=== PATIENT | female | born 1975 | race Caucasian/White ===

== ENCOUNTER → 2017-05-01 | Outpatient (CLI) | payer OTHER ==
[2017-05-01 17:54] LABS: Appearance,Urine Clear (Clear); Bilirubin,Urine Negative (Negative); Glucose,Urine (UA) Negative (Negative); Ketones,Urine Trace (Negative); Leukocyte Esterase,Urine Negative (Negative); Nitrite,Urine Negative (Negative); PH, Urine 6.5 (5.0-8.0); Protein,Urine Trace (Negative); Specific Gravity,Urine 1.025 (1.001-1.035); UA Billing (MACRO vs. MICRO) CHEM
== END | disposition home or self-care (01) ==
LOC: LABWHC1 17:27
PROVIDERS: ATTEND Obstetrics & Gynecology
DX: R31.9 Hematuria, unspecified (principal)
CPT/HCPCS: 81003; 87086

== ENCOUNTER 2017-07-31 16:26 | Emergency (ER) | payer OTHER ==
[2017-07-31 16:45] VITALS: RESP 16
[2017-07-31] MEDS ORDERED: KETOROLAC 30 MG/ML 1 ML VIAL IVP STA (17:26)
[2017-07-31] MEDS ORDERED: ONDANSETRON 4 MG/2 ML VIAL IVP STA (17:26)
[2017-07-31] MEDS ORDERED: SODIUM CHLORIDE 0.9% 1,000 ML IV ONE (17:26)
--- NOTE | 2017-07-31 17:28 | ED ---
Abdominal Pain HPI - General Chief Complaint: Abdominal Pain Stated Complaint: Pain in lower back and side Time Seen by Provider: 07/31/17 17:12 Source: patient, RN notes reviewed, old records reviewed Mode of arrival: ambulatory Limitations: no limitations - History of Present Illness Initial Comments: 41-year-old female presents emergency room today chief complaint of 4 hours of right-sided lower abdominal pain. Patient reports that she's noticed a dark color to her urine for the past few days. She denies any nausea or vomiting. She reports that she's had no fever or chills. The symptoms started just this evening that she's noticed some lower back pain over the past few days. She has history of degenerative disc disease and thinks that may be her back pain was just attributed to this. She denies any vaginal discharge. Surgical history includes hysterectomy, D&C. Patient reports that she has a history of ovarian cysts as well. She did take some Motrin prior to arrival with little relief from the pain. - Related Data Home Medications Medication Instructions Recorded Confirmed Ibuprofen [Motrin] 600 mg PO Q8HR PRN 06/11/16 07/31/17 ALPRAZolam [Xanax] 0.5 mg PO DAILY PRN 07/31/17 07/31/17 Ascorbic Acid [Vitamin C] 500 mg PO DAILY 07/31/17 07/31/17 Calcium Carbonate [Calcium] 600 mg PO DAILY 07/31/17 07/31/17 Folic Acid 0.4 mg PO DAILY 07/31/17 07/31/17 Previous Rx's Medication Instructions Recorded traMADol HCl [Ultram] 50 mg PO Q6H PRN #20 tab 07/31/17 Allergies Allergy/AdvReac Type Severity Reaction Status Date / Time No Known Allergies Allergy Verified 07/31/17 17:28 Review of Systems ROS Statement: Those systems with pertinent positive or pertinent negative responses have been documented in the HPI. ROS Other: All systems not noted in ROS Statement are negative. Past Medical History Additional Past Medical History / Comment(s): anemia,uterine fibroid History of Any Multi-Drug Resistant Organisms: None Reported Past Surgical History: Hysterectomy, Tubal Ligation Additional Past Surgical History / Comment(s): LEEP Procedure,D&C. Robotic hysterectomey 06/14/2016 Past Anesthesia/Blood Transfusion Reactions: No Reported Reaction Past Psychological History: No Psychological Hx Reported Smoking Status: Former smoker Past Alcohol Use History: None Reported Past Drug Use History: None Reported - Past Family History Mother Family Medical History: Liver Disease Father Family Medical History: Thyroid Disorder General Exam - General Exam Comments Initial Comments: This is a 41-year-old female. No acute distress. Limitations: no limitations General appearance: alert, in no apparent distress Head exam: Present: atraumatic, normocephalic, normal inspection Eye exam: Present: normal appearance, PERRL, EOMI. Absent: scleral icterus, conjunctival injection, periorbital swelling ENT exam: Present: normal exam, mucous membranes moist Neck exam: Present: normal inspection. Absent: tenderness, meningismus, lymphadenopathy Respiratory exam: Present: normal lung sounds bilaterally. Absent: respiratory distress, wheezes, rales, rhonchi, stridor Cardiovascular Exam: Present: regular rate, normal rhythm, normal heart sounds. Absent: systolic murmur, diastolic murmur, rubs, gallop, clicks GI/Abdominal exam: Present: soft, tenderness (Right lower quadrant tenderness.) , normal bowel sounds. Absent: distended, guarding, rebound, rigid Back exam: Present: normal inspection Neurological exam: Present: alert Psychiatric exam: Present: normal affect, normal mood Skin exam: Present: warm, dry, intact, normal color. Absent: rash Course Vital Signs 07/31/17 07/31/17 16:43 19:42 Temperature 98.8 F 97.3 F L Pulse Rate 68 58 L Respiratory 16 16 Rate Blood Pressure 105/56 89/57 O2 Sat by Pulse 99 100 Oximetry Medical Decision Making - Medical Decision Making 41-year-old female presents emergency room today chief complaint of 4 hours of right-sided lower abdominal pain. Patient reports that she's noticed a dark color to her urine for the past few days. She denies any nausea or vomiting. She reports that she's had no fever or chills. Patient does have some right lower quadrant tenderness. No rebound or guarding noted. Patient received IV fluids labwork obtained. Patient's lab work was all reviewed and within normal limits. Her urinalysis did show a few red blood cells. Concern for possible kidney stone. I did send the patient to get a CT abdomen and pelvis without contrast. This time there is no evidence of any obstructive stone no hydronephrosis. Patient does have some abnormalities around her pancreas, discussed that she has normal pancreatic enzymes are not concern for the CT finding. She does also have a 6 cm right-sided ovarian cyst. This could likely be patient's origin of pain as well. I discussed with the positive blood in her urine she may have actually passed a stone. She'll be discharged at this time with pain medication and close follow-up with primary care physician. Discussed return to emergency department if any alarming signs or symptoms occur. Urine culture obtained. - Lab Data Result diagrams: 07/31/17 17:33 07/31/17 17:33 Lab Results 07/31/17 07/31/17 07/31/17 Range/Units 17:33 17:33 17:33 WBC 6.1 (3.8-10.6) k/uL RBC 4.69 (3.80-5.40) m/uL Hgb 13.9 (11.4-16.0) gm/dL Hct 42.1 (34.0-46.0) % MCV 89.7 (80.0-100.0) fL MCH 29.7 (25.0-35.0) pg MCHC 33.1 (31.0-37.0) g/dL RDW 13.4 (11.5-15.5) % Plt Count 264 (150-450) k/uL Neutrophils % 57 % Lymphocytes % 28 % Monocytes % 6 % Eosinophils % 7 % Basophils % 1 % Neutrophils # 3.5 (1.3-7.7) k/uL Lymphocytes # 1.7 (1.0-4.8) k/uL Monocytes # 0.4 (0-1.0) k/uL Eosinophils # 0.4 (0-0.7) k/uL Basophils # 0.1 (0-0.2) k/uL Sodium 140 (137-145) mmol/L Potassium 3.8 (3.5-5.1) mmol/L Chloride 106 (98-107) mmol/L Carbon Dioxide 27 (22-30) mmol/L Anion Gap 7 mmol/L BUN 15 (7-17) mg/dL Creatinine 0.80 (0.52-1.04) mg/dL Est GFR (MDRD) Af Amer >60 (>60 ml/min/1.73 sqM) Est GFR (MDRD) Non-Af >60 (>60 ml/min/1.73 sqM) Glucose 86 (74-99) mg/dL Calcium 9.7 (8.4-10.2) mg/dL Total Bilirubin 0.5 (0.2-1.3) mg/dL AST 18 (14-36) U/L ALT 27 (9-52) U/L Alkaline Phosphatase 60 (38-126) U/L Total Protein 6.2 L (6.3-8.2) g/dL Albumin 3.5 (3.5-5.0) g/dL Amylase (30-110) U/L Lipase (23-300) U/L Urine Color Urine Appearance (Clear) Urine pH (5.0-8.0) Ur Specific [place] (1.001-1.035) Urine Protein (Negative) Urine Glucose (UA) (Negative) Urine Ketones (Negative) Urine Blood (Negative) Urine Nitrite (Negative) Urine Bilirubin (Negative) Urine Urobilinogen (<2.0) mg/dL Ur Leukocyte Esterase (Negative) Urine RBC (0-5) /hpf Urine WBC (0-5) /hpf Ur Squamous Epith Cells (0-4) /hpf Urine Bacteria (None) /hpf Urine Mucus (None) /hpf Urine HCG, Qual Not Detected (Not Detectd) 07/31/17 07/31/17 Range/Units 17:33 17:33 WBC (3.8-10.6) k/uL RBC (3.80-5.40) m/uL Hgb (11.4-16.0) gm/dL Hct (34.0-46.0) % MCV (80.0-100.0) fL MCH (25.0-35.0) pg MCHC (31.0-37.0) g/dL RDW (11.5-15.5) % Plt Count (150-450) k/uL Neutrophils % % Lymphocytes % % Monocytes % % Eosinophils % % Basophils % % Neutrophils # (1.3-7.7) k/uL Lymphocytes # (1.0-4.8) k/uL Monocytes # (0-1.0) k/uL Eosinophils # (0-0.7) k/uL Basophils # (0-0.2) k/uL Sodium (137-145) mmol/L Potassium (3.5-5.1) mmol/L Chloride (98-107) mmol/L Carbon Dioxide (22-30) mmol/L Anion Gap mmol/L BUN (7-17) mg/dL Creatinine (0.52-1.04) mg/dL Est GFR (MDRD) Af Amer (>60 ml/min/1.73 sqM) Est GFR (MDRD) Non-Af (>60 ml/min/1.73 sqM) Glucose (74-99) mg/dL Calcium (8.4-10.2) mg/dL Total Bilirubin (0.2-1.3) mg/dL AST (14-36) U/L ALT (9-52) U/L Alkaline Phosphatase (38-126) U/L Total Protein (6.3-8.2) g/dL Albumin (3.5-5.0) g/dL Amylase 79 (30-110) U/L Lipase 269 (23-300) U/L Urine Color Yellow Urine Appearance Clear (Clear) Urine pH 6.5 (5.0-8.0) Ur Specific [place] 1.020 (1.001-1.035) Urine Protein Negative (Negative) Urine Glucose (UA) Negative (Negative) Urine Ketones Negative (Negative) Urine Blood Trace H (Negative) Urine Nitrite Negative (Negative) Urine Bilirubin Negative (Negative) Urine Urobilinogen 2.0 (<2.0) mg/dL Ur Leukocyte Esterase Negative (Negative) Urine RBC 15 H (0-5) /hpf Urine WBC 3 (0-5) /hpf Ur Squamous Epith Cells 6 H (0-4) /hpf Urine Bacteria Moderate H (None) /hpf Urine Mucus Occasional H (None) /hpf Urine HCG, Qual (Not Detectd) - Radiology Data Radiology results: report reviewed CT head and pelvis shows a prominent pancreas that is probably within normal limits. Possible mild pancreatitis. Entirely excluded. No pancreatic mass noted. There is a large to low density pelvic mass probably an ovarian cyst. There is normal appendix. No evidence of renal stone or obstruction. Hysterectomy compared to old exam. Disposition Clinical Impression: Hematuria, RLQ abdominal pain Disposition: HOME SELF-CARE Condition: Good Instructions: Abdominal Pain (ED) Additional Instructions: Patient advised to follow-up with primary care provider within the next 1-2 days. Take prescription as directed. Return to emergency department if any alarming signs or symptoms occur. Prescriptions: traMADol HCl [Ultram] 50 mg PO Q6H PRN #20 tab PRN Reason: Pain Referrals: Sergio Kessler MD [Primary Care Provider] - 1-2 days Time of Disposition: 19:25
[2017-07-31] MEDS ORDERED: SODIUM CHLORIDE 0.9% 1,000 ML IV SCH (17:30)
[2017-07-31 17:45] LABS: Basophils # (A) 0.1 k/uL (0-0.2); Basophils % (A) 1 %; Eosinophils # (A) 0.4 k/uL (0-0.7); Eosinophils % (A) 7 %; HCT 42.1 % (34.0-46.0); HGB 13.9 gm/dL (11.4-16.0); Lymphocytes # (A) 1.7 k/uL (1.0-4.8); Lymphocytes % (A) 28 %; MCH 29.7 pg (25.0-35.0); MCHC 33.1 g/dL (31.0-37.0); MCV 89.7 fL (80.0-100.0); Monocytes # (A) 0.4 k/uL (0-1.0); Monocytes % (A) 6 %; Neutrophils # (A) 3.5 k/uL (1.3-7.7); Neutrophils % (A) 57 %; Platelet Count 264 k/uL (150-450); RBC 4.69 m/uL (3.80-5.40); RDW 13.4 % (11.5-15.5); WBC 6.1 k/uL (3.8-10.6)
[2017-07-31 17:57] LABS: ALT 27 U/L (9-52); AST 18 U/L (14-36); Albumin 3.5 g/dL (3.5-5.0); Alkaline Phosphatase 60 U/L (38-126); Anion Gap 7 mmol/L; Blood Urea Nitrogen 15 mg/dL (7-17); Calcium 9.7 mg/dL (8.4-10.2); Carbon Dioxide 27 mmol/L (22-30); Chloride 106 mmol/L (98-107); Glucose 86 mg/dL (74-99); Potassium 3.8 mmol/L (3.5-5.1); Sodium 140 mmol/L (137-145); Total Bilirubin 0.5 mg/dL (0.2-1.3); Total Protein 6.2 g/dL (6.3-8.2)
[2017-07-31 18:00] LABS: Appearance,Urine Clear (Clear); Bacteria,Urine Moderate /hpf; Bilirubin,Urine Negative (Negative); Blood,Urine Trace (Negative); Color,Urine Yellow; Glucose,Urine (UA) Negative (Negative); Ketones,Urine Negative (Negative); Leukocyte Esterase,Urine Negative (Negative); Mucus,Urine Occasional /hpf; Nitrite,Urine Negative (Negative); PH, Urine 6.5 (5.0-8.0); Protein,Urine Negative (Negative); RBC,Urine 15 /hpf (0-5); Squamous Epithelial Cell,Urine 6 /hpf (0-4); WBC,Urine 3 /hpf (0-5)
--- NOTE | 2017-07-31 18:43 | CT ---
EXAMINATION TYPE: CT abdomen pelvis wo con DATE OF EXAM: 07/31/2017 COMPARISON: 11/17/2015 HISTORY: Right sided pain with urination changes CT DLP: 241.4 mGycm Automated exposure control for dose reduction was used. TECHNIQUE: Helical acquisition of images was performed from the lung bases through the pelvis. FINDINGS: The lung bases are clear. There is no pleural effusion. Liver spleen appear normal. Pancreatic head i s somewhat prominent. There is probably some hypertrophy of the entire pancreas. I see no discrete ma ss. Bile ducts are not dilated. Gallbladder is contracted. There is no adrenal mass. Kidneys have normal size and contour. There is no hydronephrosis. Ureters a re not dilated. Appendix appears normal. I see no intestinal wall thickening. There are no dilated lo ops. Bladder distends smoothly. There is a low-density rounded 6 cm mass in the midline pelvis. Hyste rectomy is noted. I see no bony destructive process. IMPRESSION: THERE IS PROMINENT PANCREAS THAT IS PROBABLY WITHIN NORMAL LIMITS. THE POSSIBILITY OF MILD PANCREATIT IS CANNOT BE ENTIRELY EXCLUDED. NO DISCRETE PANCREATIC MASS SEEN. LARGE LOW DENSITY PELVIC MASS IS PROBABLY A OVARIAN CYST. NORMAL APPENDIX. NO EVIDENCE OF RENAL STONE OR OBSTRUCTION. THERE IS APPARENT HYSTERECTOMY COMPARED TO OLD EXAM. Pancreas is probably not significantly different than old exam.
[2017-07-31 19:05] LABS: Amylase 79 U/L (30-110); Lipase 269 U/L (23-300)
[2017-07-31] MEDS ORDERED: traMADol 50 MG STARTER PACK 3 TAB BTL PO STA (19:26)
[2017-07-31 19:44] VITALS: BP 89/57; PULSE 58; TEMP 97.3
== END 2017-07-31 19:48 | disposition home or self-care (01) ==
LOC: EC 16:26
DX: R31.9 Hematuria, unspecified (principal); R10.31 Right lower quadrant pain; Z98.51 Tubal ligation status; Z87.891 Personal history of nicotine dependence; Z79.899 Other long term (current) drug therapy
CPT/HCPCS: 36415; 80053; 82150; 83690; 85025; 81001; 81025; 87086; 74176; 99285; 96374; 96375; 96361 ×2; J2405; J1885

== ENCOUNTER → 2017-08-29 | Outpatient (CLI) | payer OTHER ==
--- NOTE | 2017-09-02 09:22 | MM ---
Reason for exam: screening (asymptomatic). Last mammogram was performed 1 year and 3 months ago. History: Family history of breast cancer in paternal grandmother. Physical Findings: A clinical breast exam by your physician is recommended on an annual basis and results should be correlated with mammographic findings. MG Screening Mammo w CAD Bilateral CC and MLO view(s) were taken. Prior study comparison: May 30, 2016, bilateral MG screening mammo w CAD. April 18, 2015, bilateral MG screening mammo w CAD. No significant changes when compared with prior studies. ASSESSMENT: Negative, BI-RAD 1 RECOMMENDATION: Routine screening mammogram of both breasts in 1 year.
== END | disposition home or self-care (01) ==
LOC: RADMAMWWP 08:56
PROVIDERS: ATTEND Obstetrics & Gynecology
DX: Z12.31 Encounter for screening mammogram for malignant neoplasm of breast (principal)
CPT/HCPCS: 77067

== ENCOUNTER → 2017-10-31 | Outpatient (CLI) | payer OTHER ==
--- NOTE | 2017-10-31 11:39 | US ---
EXAMINATION TYPE: US transvaginal DATE OF EXAM: 10/31/2017 COMPARISON: CT abdomen and pelvis July 31, 2017. Prior pelvic ultrasound October 04, 2015 CLINICAL HISTORY: N83.20 Previous right ovarian cyst. Intermittent pelvic and back pain x couple oni hs, history of ovarian cysts, hysterectomy 2016 and tubal ligation, 4, para 3 TECHNIQUE: Transvaginal exam only per ordering physician Date of LMP: 2015 EXAM MEASUREMENTS: Uterus: surgically absent Endometrial Stripe: surgically absent Right Ovary: 2.2 x 1.2 x 1.8 cm Left Ovary: not seen 1. Uterus: surgically absent 2. Endometrium: surgically absent 3. Right Ovary: wnl 4. Left Ovary: not seen due to overlying bowel 5. Bilateral Adnexa: wnl 6. Posterior cul-de-sac: wnl Uterus is now surgically absent. Normal-appearing right ovary is seen. Normal-appearing left ovary is not clearly identified. Previous ly visualized large pelvic cystic lesion on CT is not clearly seen on ultrasound. IMPRESSION: As above. I would consider repeat CT or MRI or transabdominal pelvic ultrasound to defini tively document resolution of large pelvic low dense or cystic lesion as due to central pelvic locati on it may be missed on transvaginal investigation.
== END | disposition home or self-care (01) ==
LOC: RADUSWWP 10:01
PROVIDERS: ATTEND Obstetrics & Gynecology
DX: Z09 Encounter for follow-up examination after completed treatment for conditions other than malignant neoplasm (principal); Z90.710 Acquired absence of both cervix and uterus; Z87.42 Personal history of other diseases of the female genital tract
CPT/HCPCS: 36415; 76830; 82670; 83001

== ENCOUNTER → 2020-07-17 | Outpatient (CLI) | payer OTHER ==
--- NOTE | 2020-07-19 14:41 | MM ---
Reason for exam: screening (asymptomatic). Last mammogram was performed 2 years and 11 months ago. History: Patient is postmenopausal. Family history of breast cancer in paternal grandmother. Took hormonal contraceptives for 6 months. Physical Findings: A clinical breast exam by your physician is recommended on an annual basis and results should be correlated with mammographic findings. MG Screening Mammo w CAD Bilateral CC and MLO view(s) were taken. Prior study comparison: August 29, 2017, bilateral MG screening mammo w CAD. June 04, 2016, left breast MG work up mamm w CAD LT. The breast tissue is heterogeneously dense. This may lower the sensitivity of mammography. No significant changes when compared with prior studies. ASSESSMENT: Negative, BI-RAD 1 RECOMMENDATION: Routine screening mammogram of both breasts in 1 year. Patient should continue monthly self breast exams. A negative report should not preclude additional follow up of suspicious palpable abnormalities.
== END | disposition home or self-care (01) ==
LOC: RADMAMWWP 07:56
PROVIDERS: ATTEND Obstetrics & Gynecology
DX: Z12.31 Encounter for screening mammogram for malignant neoplasm of breast (principal)
CPT/HCPCS: 77067

== ENCOUNTER → 2022-08-12 | Outpatient (CLI) | payer OTHER ==
--- NOTE | 2022-08-13 08:25 | MM ---
Reason for Exam: Screening (asymptomatic). Last mammogram was performed 2 year(s) and 0 month(s) ago. Patient History: Menarche at age 11. First Full-Term at age 19. Hysterectomy at age 41. Postmenopausal. Hormonal Contraceptives for 6 months. Paternal grandmother had breast cancer. Risk Values: Francine 5 year model risk: 0.8%. NCI Lifetime model risk: 8.4%. Prior Study Comparison: 06/04/2016 Left Diagnostic Mammogram, [facility]. 08/29/2017 Bilateral Screening Mammogram, [facility]. 07/17/2020 Bilateral Screening Mammogram, [facility]. Tissue Density: The breast tissue is heterogeneously dense. This may lower the sensitivity of mammography. Findings: Analyzed By CAD. There is no suspicious group of microcalcifications or new suspicious mass in either breast. Overall Assessment: Negative, BI-RAD 1 Management: Screening Mammogram of both breasts in 1 year. A clinical breast exam by your physician is recommended on an annual basis and results should be correlated with mammographic findings. [facility] will attempt to contact patient to return for supplemental views and ultrasound if indicated. Electronically signed and approved by: Schuyler Welsh DO
== END | disposition home or self-care (01) ==
LOC: RADMAMWWP 15:58
PROVIDERS: ATTEND Obstetrics & Gynecology
DX: Z12.31 Encounter for screening mammogram for malignant neoplasm of breast (principal); Z78.0 Asymptomatic menopausal state; Z80.3 Family history of malignant neoplasm of breast
CPT/HCPCS: 77067

== ENCOUNTER → 2022-10-22 | Outpatient (CLI) | payer OTHER ==
--- NOTE | 2022-10-22 12:15 | XR ---
EXAM TYPE: LUMBAR SPINE X RAY SERIES COMPARISON: NONE HISTORY: Pain TECHNIQUE: 3 views are submitted. FINDINGS: Alignment is anatomic. The pedicles are intact. The transverse processes are intact. There is no s pondylolisthesis. Facet arthropathy L4-5 and L5-S1. IMPRESSION: 1. Facet arthropathy L4-5 and L5-S1 likely resulting in foraminal encroachment and L5-S1 consider fol low-up MRI.
--- NOTE | 2022-10-22 12:16 | XR ---
EXAMINATION TYPE: XR cervical spine comp DATE OF EXAM: 10/22/2022 COMPARISON: NONE HISTORY: Pain TECHNIQUE: Four views are submitted. FINDINGS: The odontoid is intact. There are no compression deformities. The prevertebral soft tissue structur es are within normal limits. Loss of normal cervical lordosis with degenerative disc disease C4-5 an d C5-C6. IMPRESSION: 1. Loss of the normal cervical lordosis with moderate degenerative disease C4-5 C5-C6. Recommend MRI. .
== END | disposition home or self-care (01) ==
LOC: RADXRMAIN 11:48
PROVIDERS: ATTEND Chiropractor
DX: M50.322 Other cervical disc degeneration at C5-C6 level (principal); M47.812 Spondylosis without myelopathy or radiculopathy, cervical region; M47.817 Spondylosis without myelopathy or radiculopathy, lumbosacral region
CPT/HCPCS: 72050; 72100

== ENCOUNTER 2022-12-18 15:26 | Emergency (ER) | payer OTHER ==
[2022-12-18] MEDS ORDERED: ORPHENADRINE 30 MG/ML 2 ML VIAL IM STA (16:33)
[2022-12-18] MEDS ORDERED: KETOROLAC 15 MG/ML 1 ML VIAL IM STA (16:33)
--- NOTE | 2022-12-18 16:37 | ED ---
Back Pain HPI - General Chief Complaint: Back Pain/Injury Stated Complaint: Back Pain Time Seen by Provider: 12/18/22 16:25 Source: patient, RN notes reviewed, old records reviewed Limitations: no limitations - History of Present Illness Initial Comments: Well-appearing 47-year-old female presents to the emergency room with left lower back muscle "spasms" since 0800 this morning after she tried to twist open a container and felt the spasm. She has had similar symptoms like this in the past. No bowel or bladder incontinence. Denies any fevers. Denies any trauma. MD Complaint: back pain -: hour(s) (8) Similar Symptoms Previously: Yes Place: home Quality: sharp Consistency: intermittent Improves With: immobilization Worsens With: movement Context: turning/twisting Associated Symptoms: denies other symptoms - Related Data Home Medications Medication Instructions Recorded Confirmed Ibuprofen [Motrin] 600 mg PO Q8HR PRN 06/11/16 07/31/17 ALPRAZolam [Xanax] 0.5 mg PO DAILY PRN 07/31/17 07/31/17 Ascorbic Acid [Vitamin C] 500 mg PO DAILY 07/31/17 07/31/17 Calcium Carbonate [Calcium] 600 mg PO DAILY 07/31/17 07/31/17 Folic Acid 0.4 mg PO DAILY 07/31/17 07/31/17 Previous Rx's Medication Instructions Recorded traMADol HCl [Ultram] 50 mg PO Q6H PRN #20 tab 07/31/17 Cyclobenzaprine [Flexeril] 10 mg PO TID PRN #15 tab 12/18/22 Ibuprofen 400 mg PO Q8HR PRN #30 tablet 12/18/22 Lidocaine 5% Patch [Lidoderm] 1 patch TOPICAL DAILY 14 Days #14 12/18/22 patch Allergies Allergy/AdvReac Type Severity Reaction Status Date / Time No Known Allergies Allergy Verified 12/18/22 16:17 Review of Systems ROS Statement: Those systems with pertinent positive or pertinent negative responses have been documented in the HPI. ROS Other: All systems not noted in ROS Statement are negative. Past Medical History Additional Past Medical History / Comment(s): anemia,uterine fibroid History of Any Multi-Drug Resistant Organisms: None Reported Past Surgical History: Hysterectomy, Tubal Ligation Additional Past Surgical History / Comment(s): LEEP Procedure,D&C. Robotic hysterectomey 06/14/2016 Past Anesthesia/Blood Transfusion Reactions: No Reported Reaction Past Psychological History: No Psychological Hx Reported Smoking Status: Never smoker Past Alcohol Use History: None Reported Past Drug Use History: None Reported - Past Family History Mother Family Medical History: Liver Disease Father Family Medical History: Thyroid Disorder General Exam Limitations: no limitations General appearance: alert, in no apparent distress Head exam: Present: atraumatic Eye exam: Present: normal appearance. Absent: scleral icterus, conjunctival injection, periorbital swelling Cardiovascular Exam: Present: normal rhythm Back exam: Present: muscle spasm (left lumbar), paraspinal tenderness (Lumbar) Neurological exam: Present: alert, oriented X3 Psychiatric exam: Present: normal affect, normal mood Skin exam: Present: warm, dry, normal color. Absent: cyanosis, diaphoretic, pal lucio Course Vital Signs 12/18/22 16:13 Pulse Rate 74 Respiratory 20 Rate Blood Pressure 91/64 O2 Sat by Pulse 99 Oximetry Medical Decision Making - Medical Decision Making Was pt. sent in by a medical professional or institution (, PA, CORPORATE BUYER, urgent care, hospital, or usp...) When possible be specific @ -No Did you speak to anyone other than the patient for history (EMS, parent, family, police, friend...)? What history was obtained from this source @ -No Did you review nursing and triage notes (agree or disagree)? Why? @ -I reviewed and agree with nursing and triage notes Were old charts reviewed (outside hosp., previous admission, EMS record, old EKG, old radiological studies, urgent care reports/EKG's, usp records)? Report findings @ -No old charts were reviewed Differential Diagnosis (chest pain, altered mental status, abdominal pain women, abdominal pain men, vaginal bleeding, weakness, fever, dyspnea, syncope, headache, dizziness, GI bleed, back pain, seizure, CVA, palpatations, mental health, musculoskeletal)? @ -Differential Back Pain: Strain, zoster, cauda equina syndrome, epidural abscess, vertebral osteomyelitis, discitis, fracture, subluxation, disc herniation, DJD, spinal stenosis, dissection, AAA, pancreatitis, peptic ulcer disease, pyelonephritis, kidney stone, this is not meant to be an all-inclusive list. EKG interpreted by me (3pts min.). @ -n/a X-rays interpreted by me (1pt min.). @ -None done CT interpreted by me (1pt min.). @ -None done U/S interpreted by me (1pt. min.). @ -None done What testing was considered but not performed or refused? (CT, X-rays, U/S, labs)? Why? @ X-ray was considered however patient denies any trauma. No bowel or bladder incontinence, full range of motion of bilateral lower extremities. No pain with vertebral palpation. What meds were considered but not given or refused? Why? @ -None Did you discuss the management of the patient with other professionals (professionals i.e. DrCaro, PA, CORPORATE BUYER, lab, RT, psych nurse, foster care social worker, soap slabber, teacher, national insurance officer, outsole caser)? Give summary @ -No Was smoking cessation discussed for >3mins.? @ -No Was critical care preformed (if so, how long)? @ -No Were there social determinants of health that impacted care today? How? (Homelessness, low income, unemployed, alcoholism, drug addiction, transportation, low edu. Level, literacy, decrease access to med. care, penitentiary, rehab)? @ -No Was there de-escalation of care discussed even if they declined (Discuss DNR or withdrawal of care, Hospice)? DNR status @ -No What co-morbidities impacted this encounter? (DM, HTN, Smoking, COPD, CAD, Cancer, CVA, ARF, Chemo, Hep., AIDS, mental health diagnosis, sleep apnea, morbid obesity)? @ -None Was patient admitted / discharged? Hospital course, mention meds given and route, prescriptions, significant lab abnormalities, going to OR and other pertinent info. @ -Discharged 47-year-old female presents with left lower lumbar back muscle "spasms" since 0800 this morning after she tried to twist open a container. She has had similar symptoms like this in the past. Denies any bowel or bladder incontinence. Denies any fevers. Denies any trauma. Reports some relief with Toradol Lidoderm and norflex. I did explain that this may take time to improve and she was encouraged to use massage and heat also. Given a prescription for Lidoderm Motrin and Flexeril. She is agreeable to this plan of care. Discharged home with family. Case discussed with Dr. Vu. Undiagnosed new problem with uncertain prognosis? @ -No Drug Therapy requiring intensive monitoring for toxicity (Heparin, Nitro, Insulin, Cardizem)? @ -No Were any procedures done? @ -No Diagnosis/symptom? @ -Acute back pain with muscle spasms Acute, or Chronic, or Acute on Chronic? @ -Acute Uncomplicated (without systemic symptoms) or Complicated (systemic symptoms)? @ -Uncomplicated Side effects of treatment? @ -No Exacerbation, Progression, or Severe Exacerbation? @ -No Poses a threat to life or bodily function? How? (Chest pain, [place], [place], pneumonia, PE, COPD, DKA, ARF, appy, cholecystitis, CVA, Diverticulitis, Homicidal, Suicidal, threat to staff... and all critical care pts) @ -No Disposition Clinical Impression: Back pain Disposition: HOME SELF-CARE Condition: Good Instructions (If sedation given, give patient instructions): Acute Low Back Pain (ED), Muscle Spasm (ED) Additional Instructions: I recommend taking Tylenol and/or Motrin as needed for pain. You can also use Flexeril for muscle spasms as needed. Topical pain relievers like Lidoderm patch as prescribed or over the counter [place], [place] balm and icy hot may also be beneficial. Follow-up with the primary care doctor and return to the emergency room with any new or concerning symptoms. Prescriptions: Cyclobenzaprine [Flexeril] 10 mg PO TID PRN #15 tab PRN Reason: Muscle Spasm Ibuprofen 400 mg PO Q8HR PRN #30 tablet PRN Reason: Pain Lidocaine 5% Patch [Lidoderm] 1 patch TOPICAL DAILY 14 Days #14 patch Is patient prescribed a controlled substance at d/c from ED?: No Referrals: Sergio Kessler MD [Primary Care Provider] - 1-2 days Time of Disposition: 17:24
[2022-12-18] MEDS ORDERED: LIDOCAINE 5% PATCH TOPICAL SCH (16:45)
[2022-12-18 17:52] VITALS: BP 96/64; PULSE 60; RESP 18; TEMP 97.6
== END 2022-12-18 18:19 | disposition home or self-care (01) ==
LOC: EC 15:26
DX: M54.9 Dorsalgia, unspecified (principal); X50.0XXA Overexertion from strenuous movement or load, initial encounter
CPT/HCPCS: 99283; 96372; J2360; J1885

== ENCOUNTER → 2023-01-11 | Outpatient (CLI) | payer OTHER ==
--- NOTE | 2023-01-11 17:06 | MR ---
MRI CERVICAL and thoracic spine without contrast CLINICAL HISTORY: Neck pain and back pain TECHNIQUE: Multiplanar, multisequence imaging of the cervical spine and thoracic spine is performed w ithout contrast.. COMPARISON: MRI cervical spine dated 05/21/2016 MRI cervical spine: The craniovertebral junction relationships and prevertebral soft tissues are normal. The cervical vertebral segments are normal in height and alignment and there is no fracture subluxati on. There is mild degenerative disc disease at the C4-5, C5-6 C7 levels where there is mild disc space na rrowing and posterior bulge resulting in minimal mass effect on the ventral aspect of thecal sac. There are no cervical disc herniations. The cervical cord is normal in size and signal intensity and there is no cervical stenosis there is m ild narrowing of the neural foramina on the right side at the C5-6 level secondary to mild degenerati ve change of the uncovertebral joint. The remaining neuroforamina are widely patent. Paraspinal soft tissues are unremarkable. MRI thoracic spine: The thoracic vertebral segments are normal in height and alignment and there is no fracture subluxati on. Disc spaces are well-maintained in height. The thoracic cord is normal in size and signal intensity. There is no thoracic spinal stenosis and no thoracic disc herniation. This paraspinal soft tissues are unremarkable. IMPRESSION: 1. Mild degenerative disc disease in lower cervical spine with mild neural foraminal stenosis at the C4-5 level on the right. 2. No significant abnormality of the thoracic spine.
== END | disposition home or self-care (01) ==
LOC: RADMRIMAIN 13:36
PROVIDERS: ATTEND Family Medicine
DX: M50.121 Cervical disc disorder at C4-C5 level with radiculopathy (principal); M48.02 Spinal stenosis, cervical region
CPT/HCPCS: 72141; 72146

== ENCOUNTER → 2023-01-23 | Outpatient (CLI) | payer OTHER ==
--- NOTE | 2023-01-24 10:24 | MR ---
EXAMINATION TYPE: MR brain wo/w con DATE OF EXAM: 01/23/2023 COMPARISON: NONE HISTORY: 47-year-old female R51.9 Headaches, TECHNIQUE: Multiplanar, multisequence images of the brain and brainstem were acquired before and aft er administration of 6 mL IV Gadavist. Diffusion weighted imaging is performed. FINDINGS: No evidence for acute infarction, hemorrhage, mass, mass effect, midline shift, herniation, effacemen t of basal cisterns, or extra-axial fluid collection. The ventricles and sulci are age-appropriate. Major intracranial flow voids are intact. T2/FLAIR weighted sequences show no white matter signal abnormality. Midline structures demonstrate normal morphology. The craniocervical junction is normal. Post contrast images demonstrate no evidence of pathologic enhancement. Dural venous sinuses are pat ent. The visualized sinuses are clear and the globes are intact. IMPRESSION: No acute intracranial abnormality seen. No enhancing intracranial lesions.
== END | disposition home or self-care (01) ==
LOC: RADMRIMAIN 12:03
PROVIDERS: ATTEND Family Medicine
DX: R51.9 Headache, unspecified (principal)
CPT/HCPCS: 70553; A9585

== ENCOUNTER → 2023-08-06 | Outpatient (CLI) | payer OTHER ==
[2023-08-06 15:48] LABS: HCT 44.2 % (37.2-46.3); HGB 14.6 g/dL (12.0-15.0); MCH 29.4 pg (27.0-32.0); MCV 89.1 FL (80.0-97.0); Mean Platelet Volume 9.8 FL (9.5-12.2); NRBC Per 100 WBC 0 X 10*3/uL (0.00-0.01); Platelet Count 285 X 10*3/uL (140-440); RBC 4.96 X 10*6/uL (4.10-5.20); WBC 4.52 X 10*3/uL (4.50-10.00)
[2023-08-06 15:49] LABS: Basophils # (A) 0.06 X 10*3/uL (0.00-0.10); Basophils % (A) 1.3 %; Eosinophils # (A) 0.39 X 10*3/uL (0.04-0.35); Eosinophils % (A) 8.6 %; Lymphocytes # (A) 1.43 X 10*3/uL (0.90-5.00); Lymphocytes % (A) 31.6 %; Monocytes # (A) 0.35 X 10*3/uL (0.20-1.00); Monocytes % (A) 7.7 %; Neutrophils # (A) 2.28 X 10*3/uL (1.80-7.70); Neutrophils % (A) 50.6 %
[2023-08-06 18:09] LABS: ALT 11 U/L (8-44); AST 19 U/L (13-35); Albumin 4.4 g/dL (3.8-4.9); Albumin/Globulin Ratio 1.91 Ratio (1.60-3.17); Alkaline Phosphatase 81 U/L (41-126); BUN/Creat Ratio 17.29 Ratio (12.00-20.00); Blood Urea Nitrogen 12.1 mg/dL (9.0-27.0); Calcium 9.6 mg/dL (8.7-10.3); Carbon Dioxide 26.3 mmol/L (21.6-31.8); Chloride 106 mmol/L (96-109); Globulin 2.3 g/dL (1.6-3.3); Glucose 88 mg/dL (70-110); Sodium 143 mmol/L (135-145); T4, Free (Free Thyroxine) 1.29 ng/dL (0.80-1.80); Total Bilirubin 0.7 mg/dL (0.3-1.2); Total Protein 6.7 g/dL (6.2-8.2)
== END | disposition home or self-care (01) ==
LOC: LABWHC1 12:13
PROVIDERS: ATTEND Nurse Practitioner Acute Care
DX: E55.9 Vitamin D deficiency, unspecified (principal); E53.9 Vitamin B deficiency, unspecified; G43.909 Migraine, unspecified, not intractable, without status migrainosus; R41.3 Other amnesia
CPT/HCPCS: 36415; 80053; 82306; 82607; 84207; 84439; 84443; 84481; 85025

== ENCOUNTER 2023-11-21 09:26 | Day surgery (SDC) | payer OTHER ==
[2023-11-18 10:38] VITALS: BMI 25.0
[~2023-11-21 09:26] MED LIST: HYDROmorphone 0.5 MG/0.5 ML SYRINGE IVP PRN; LACTATED RINGERS 1,000 ML IV SCH; Pre Op ABX Message 1 EACH MISC MISCELLANE ONE
[2023-11-21] MEDS: LACTATED RINGERS 1,000 ML IV ONE (09:43)
[2023-11-21] MEDS: MIDAZOLAM 2 MG/2 ML VIAL IVP ONE (10:07)
[2023-11-21] MEDS ORDERED: PROPOFOL 10 MG/ML 20 ML VIAL IV ONE (10:08)
[2023-11-21] MEDS ORDERED: LIDOCAINE 1% INJ 10MG/ML (20 ML MDV) ONE (10:08)
[2023-11-21] MEDS ORDERED: PHENYLEPHRINE-0.9% NACL SYG 1,000 MCG/10 ML SYRINGE ONE (10:08)
[2023-11-21] MEDS ORDERED: fentaNYL (PF) 50 MCG/ML 2 ML AMP ONE (10:08)
[2023-11-21] MEDS: ONDANSETRON 4 MG/2 ML VIAL IVP ONE (10:09)
[2023-11-21] MEDS: DEXAMETHASONE SOD PHOSPHATE 4 MG/ML 1 ML VIAL IV ONE (10:09)
[2023-11-21] MEDS: BUPIVACAINE (PF) 0.5% 30 ML VIAL SQ ONE (10:28)
[2023-11-21] MEDS: ceFAZolin 1,000 MG in SODIUM CHLORIDE 0.9% 1,000 ML IRRIGATION ONE (10:35)
[2023-11-21 11:29] VITALS: TEMP 97
[2023-11-21] MEDS ORDERED: HYDROcodone/APAP 5-325MG 1 EACH TAB ONE (11:58)
[2023-11-21] MEDS: HYDROcodone/APAP 5-325MG 1 EACH TAB PO ONE (12:00)
[2023-11-21 12:56] VITALS: BP 101/56; PULSE 52; RESP 14
--- NOTE | 2023-11-21 14:24 | P.OP ---
Date of Procedure: 11/21/23 Preoperative Diagnosis: 1. Plantar fasciitis left foot 2. Calcaneal spur left foot Postoperative Diagnosis: 1. Same 2. Same Procedure(s) Performed: 1. Plantar fascial release left foot 2. Excision of calcaneal spur left foot Implants: none Anesthesia: CHUCHO Surgeon: Sadi Tavera Estimated Blood Loss (ml): 0 Pathology: none sent Condition: stable Disposition: PACU Description of Procedure: the patient brought into the operative room placed on table supine position. Timeout was taken to confirm correct patient identifiers, correct laterality of surgery, and correct procedure. once all staff in the room were in agreement with the timeout, the patient was induced and placed under general anesthesia. Tourniquet was placed the left ankle and then 20 mL of 0.25% Marcaine was injected as ankle block. The left foot was then prepped and draped usual manner. The left foot was exsanguinated with an Esmarch bandage and the tourniquet was inflated to 250 mmHg. Utilizing fluoroscopic visualization, the patient's foot was placed for lateral view. Metallic marker was used to deborah the location of the calcaneal spur. This deborah was placed on the skin and then a linear incision was made along the course of the plantar fascial starting at the insertion. Incision was bluntly dissected down to level of the plantar fascia. A blunt instrument was used to separate planes between the plantar fascia and the adipose tissue plantarly in the muscular layer dorsally. A scalpel was inserted and then used to resect the plantar fascial from the calcaneal attachment. This is done while holding the great toe was exposed dorsiflexed so that a palpable release could be felt once the fascia was incised. The fascia was incised approximately 50% with the calcaneus. The medial arch was then palpated to make sure there was full release and no tension through the proximal plantar fascial. Small bur was then inserted and used to reduce the calcaneal spur. The wound is then thoroughly irrigated with sterile saline. Skin was closed 3-0 nylon. Nonadherent gauze and a dry sterile dressing applied left foot. The tourniquet was released capillary refill returned all digits on the foot.
== END 2023-11-21 12:44 | disposition home or self-care (01) ==
LOC: OR 09:26
PROVIDERS: ATTEND Podiatrist
DX: M72.2 Plantar fascial fibromatosis (principal); M77.32 Calcaneal spur, left foot; Z87.891 Personal history of nicotine dependence; Z79.899 Other long term (current) drug therapy
CPT/HCPCS: 28119; J2250; J1100; J2405; J0690; J2001; J3010; J2704; J2371; J0665

== ENCOUNTER → 2023-12-12 | Outpatient (CLI) | payer OTHER ==
--- NOTE | 2023-12-12 17:15 | MM ---
Reason for Exam: Screening (asymptomatic). Last mammogram was performed 1 year(s) and 4 month(s) ago. Patient History: Menarche at age 11. First Full-Term at age 19. Hysterectomy at age 41. Postmenopausal. Hormonal Contraceptives for 6 months. Paternal grandmother had breast cancer. Risk Values: Francine 5 year model risk: 0.8%. NCI Lifetime model risk: 8.2%. Prior Study Comparison: 08/29/2017 Bilateral Screening Mammogram, [facility]. 07/17/2020 Bilateral Screening Mammogram, [facility]. 08/12/2022 Bilateral MG screening mammo w CAD, [facility]. Tissue Density: The breasts are heterogeneously dense, which may obscure small masses. Findings: Analyzed By CAD. The pattern is symmetrical. No significant interval change is evident. No suspicious groups of microcalcifications, spiculated or lobular masses, architectural distortion or other secondary signs of malignancy are mammographically apparent. Overall Assessment: Benign, BI-RAD 2 Management: Screening Mammogram of both breasts in 1 year. A negative mammogram report should not preclude additional follow up of suspicious palpable abnormalities. Patient should continue monthly self breast exam. A clinical breast exam by your physician is recommended on an annual basis and results should be correlated with mammographic findings. Note on Francine scores and lifetime risk: 1. A Francine score greater than 3% is considered moderate risk. If this is the case, consider specialist referral to assess eligibility for a risk reducing agent. 2. If overall lifetime risk for the development of breast cancer is 20% or higher, the patient may qualify for future screening with alternating mammogram and breast MRI. Electronically signed and approved by: Timothy Leung D.O. Radiologis
== END | disposition home or self-care (01) ==
LOC: RADMAMWWP 10:09
PROVIDERS: ATTEND Family Medicine
DX: Z12.31 Encounter for screening mammogram for malignant neoplasm of breast (principal); Z80.3 Family history of malignant neoplasm of breast; Z78.0 Asymptomatic menopausal state
CPT/HCPCS: 77067